=== PATIENT | female | born 1990 | race Caucasian/White ===

== ENCOUNTER 2016-05-30 11:33 | Emergency (ER) | payer MEDICAID, OTHER ==
[~2016-05-30] VITALS: Ht 160 cm; Wt 182.0 kg
[2016-05-30 14:40] VITALS: BP 130/69
== END 2016-05-30 14:42 | disposition home or self-care (01) ==
LOC: ED 14:15
DX: N92.4 Excessive bleeding in the premenopausal period (principal); Z88.0 Allergy status to penicillin
CPT/HCPCS: 36415; 76830; 84703; 85025

== ENCOUNTER 2020-04-30 16:50 | Inpatient (IN) | payer MEDICAID ==
[~2020-04-30] VITALS: Ht 160 cm; Wt 160.1 kg
--- NOTE | 2020-04-30 17:47 | NUR ---
RLQ ABD PAIN X3 DAYS WITH NAUSEA/LOOSE STOOL no abd surgeries last po intake 1pm
--- NOTE | 2020-04-30 17:51 | NUR ---
cc ua sent erp asked for pain/nause meds
[2020-04-30 17:53] LABS: BASOPHILS % (AUTO) 1 % (0-1); EOSINOPHILS % (AUTO) 3 % (1-7); LYMPHOCYTES % (AUTO) 29 % (22-44); MEAN CORPUSCULAR HEMOGLOBIN 26.8 pg (27.0-34.8); MEAN PLATELET VOLUME 7.9 fL (7.4-10.4); MONOCYTES % (AUTO) 6 % (2-9); NEUTROPHILS % (AUTO) 62 % (42-75); PLATELET COUNT 341 x10^3/uL (130-400); RED BLOOD COUNT 4.69 x10^6/uL (3.82-5.3); RED CELL DISTRIBUTION WIDTH 15.7 % (9.6-15.2)
[2020-04-30 17:55] LABS: MD NO
[2020-04-30] MEDS ORDERED: MORPHINE SULFATE 4 MG/ML, 1ML IVPush PRN (18:00)
[2020-04-30] MEDS ORDERED: OMNIPAQUE 350 MG/ML, 100ML BOTTLE ONE (18:00)
[2020-04-30] MEDS ORDERED: ONDANSETRON 2MG/ML, 2ML IVPush PRN (18:00)
[2020-04-30 18:02] LABS: MICROSCOPIC INDICATED
[2020-04-30 18:05] LABS: ALBUMIN 3.2 g/dL (3.4-5.0); ANION GAP 8 mmol/L (5-15); CALCIUM 8.3 mg/dL (8.5-10.1); CHLORIDE 111 mmol/L (98-107)
[2020-04-30 18:12] LABS: ALANINE AMINOTRANSFERASE 23 U/L (12-78); ALKALINE PHOSPHATASE 84 U/L (45-117); BILIRUBIN,TOTAL 0.7 mg/dL (0.2-1.0); CREATININE 0.82 mg/dL (0.55-1.02); TOTAL PROTEIN 7.2 g/dL (6.4-8.2)
--- NOTE | 2020-04-30 18:35 | NUR ---
PT REFUSING PAIN MEDS AT THIS TIME. PT RESTING ON SVETLANA. KITA.
[2020-04-30] MEDS ORDERED: CEFOTETAN PMX 2GM/50ML 50 ML IVPB ONE (19:00)
--- NOTE | 2020-04-30 19:11 | NUR ---
PT LAST ATE AT 1300 TODAY
--- NOTE | 2020-04-30 19:13 | NUR ---
DR MACARIO CLARIFIED PT PCN ALLERGY AND IS OK WITH ADMIN CEFOTAN. PHARM NOTIFIED.
--- NOTE | 2020-04-30 19:34 | NUR ---
RAPID COVID SWAB COLLECTED AND TAKEN TO LAB.
--- NOTE | 2020-04-30 20:05 | NUR ---
REPORT GIVEN TO NAOH BARNEY. PT RTG TO ROOM [id number]
[2020-04-30] MEDS ORDERED: ACETAMINOPHEN 325 MG TABLET PO PRN (21:00)
[2020-04-30] MEDS ORDERED: ENOXAPARIN 30 MG/0.3 ML SQ SCH (21:00)
[2020-04-30] MEDS ORDERED: OXYcodone IR 5MG TABLET PO PRN (21:00)
[2020-04-30] MEDS ORDERED: DEXTROSE 4 GM TAB.CHEW PO PRN (21:30)
[2020-04-30] MEDS ORDERED: GLUCAGON 1 MG IM PRN (21:30)
[2020-04-30] MEDS ORDERED: DEXTROSE 50%, 50ML SYRINGE IVPush PRN (21:30)
[2020-04-30 21:34] VITALS: BP 114/63
[2020-04-30] MEDS ORDERED: GLIP5TAB10 PO (21:52)
[2020-04-30] MEDS ORDERED: LOSA50TA14 PO (21:52)
[2020-04-30] MEDS ORDERED: MEGE20TA3 PO (21:52)
[2020-04-30] MEDS ORDERED: METF10007 PO (21:52)
[2020-04-30] MEDS ORDERED: INSU100I34 SQ (21:54)
[2020-04-30] MEDS ORDERED: INSULIN LISPRO 100 UNITS/ML, PEN SQ-INSULIN PRN (22:00)
[2020-04-30] MEDS ORDERED: BISACODYL 5 MG EC TABLET PO PRN (22:00)
[2020-04-30] MEDS ORDERED: POLYETHYLENE GLYCOL 17 GM PACKET NG PRN (22:00)
[2020-04-30] MEDS ORDERED: D5%-0.45% NACL 1,000 ML IV SCH (23:00)
[2020-05-01 01:20] VITALS: BP 135/93
[2020-05-01] MEDS: metroNIDAZOLE 500 MG TABLET PO SCH ×3 (01:31→14:29)
[2020-05-01] MEDS ORDERED: CEFTRIAXONE PMX 2GM/50ML 50 ML IVPB SCH (05:00)
[2020-05-01 05:05] LABS: BASOPHILS % (AUTO) 1 % (0-1); EOSINOPHILS % (AUTO) 3 % (1-7); LYMPHOCYTES % (AUTO) 34 % (22-44); MEAN CORPUSCULAR HEMOGLOBIN 26.8 pg (27.0-34.8); MEAN CORPUSCULAR HGB CONC 33.8 g/dL (32.4-35.8); MEAN PLATELET VOLUME 7.8 fL (7.4-10.4); MONOCYTES % (AUTO) 6 % (2-9); NEUTROPHILS % (AUTO) 57 % (42-75); PLATELET COUNT 301 x10^3/uL (130-400); RED BLOOD COUNT 4.59 x10^6/uL (3.82-5.3); RED CELL DISTRIBUTION WIDTH 15.6 % (9.6-15.2)
[2020-05-01 05:14] LABS: MD NO
[2020-05-01 05:19] LABS: ANION GAP 4 mmol/L (5-15); CALCIUM 8.2 mg/dL (8.5-10.1); CHLORIDE 111 mmol/L (98-107)
[2020-05-01 05:20] LABS: CREATININE 0.77 mg/dL (0.55-1.02)
[2020-05-01] MEDS ORDERED: BUPIVACAINE/PF 0.5% ONE (06:46)
[2020-05-01] MEDS ORDERED: EPINEPHRINE 1 MG/ML, 1ML ONE (06:46)
[2020-05-01] MEDS ORDERED: MIDAZOLAM 1 MG/ML, 2ML ONE (07:23)
[2020-05-01] MEDS ORDERED: FENTANYL PF 100 MCG/2ML ONE ×4 (07:23→08:31)
[2020-05-01] MEDS ORDERED: BUPIVACAINE/PF-EPI 0.5% 1:200K INFIL ONE (07:58)
[2020-05-01] MEDS ORDERED: ONDANSETRON 2MG/ML, 2ML ONE (08:19)
[2020-05-01] MEDS ORDERED: KETOROLAC 30 MG/1 ML ONE (08:19)
[2020-05-01] MEDS ORDERED: SUGAMMADEX 200 MG/2 ML IVPush ONE ×2 (08:19)
[2020-05-01] MEDS ORDERED: PROPOFOL 10 MG/ML, 20ML ONE (08:19)
[2020-05-01] MEDS ORDERED: SUCCINYLCHOLINE 20 MG/ML, 10ML ONE (08:19)
[2020-05-01] MEDS ORDERED: CEFAZOLIN 1,000 MG ONE (08:19)
[2020-05-01] MEDS ORDERED: ROCURONIUM 10MG/ML,5ML ONE (08:19)
[2020-05-01] MEDS ORDERED: LIDOCAINE-MPF 2% ,5ML ONE (08:19)
[2020-05-01] MEDS ORDERED: OXYcodone 5 MG/5 ML ORAL.SOL UDC ONE (08:32)
[2020-05-01] MEDS ORDERED: LORazepam 2 MG/ML, 1ML IVPush PRN (09:00)
[2020-05-01] MEDS ORDERED: OXYcodone 5 MG/5 ML ORAL.SOL UDC PO PRN (09:00)
[2020-05-01] MEDS ORDERED: HYDROmorphone 1 MG/ML, 1ML INJ IVPush PRN (09:00)
[2020-05-01] MEDS ORDERED: ALBUTEROL SULFATE 2.5 MG/3 ML NPPB PRN (09:00)
[2020-05-01] MEDS ORDERED: LABETALOL 5MG/ML, 20ML IV PRN (09:00)
[2020-05-01] MEDS ORDERED: OXCARBAZEPINE 150 MG TABLET PO SCH (09:00)
[2020-05-01] MEDS ORDERED: PROMETHAZINE 25 MG/ML, 1ML IVPush PRN (09:00)
[2020-05-01] MEDS ORDERED: SODIUM CHLORIDE FLUSH 10ML SYR IVF SCH (09:00)
[2020-05-01] MEDS ORDERED: MEPERIDINE/PF 25MG/0.5ML IVPush PRN (09:00)
[2020-05-01] MEDS ORDERED: hydrALAzine 20 MG/ML, 1ML IV PRN (09:00)
[2020-05-01] MEDS ORDERED: FENTANYL PF 100 MCG/2ML IV PRN (09:00)
[2020-05-01] MEDS ORDERED: LOSARTAN 50MG TABLET PO SCH (09:00)
[2020-05-01] MEDS ORDERED: ACETAMINOPHEN 325 MG TABLET PO PRN (09:00)
[2020-05-01] MEDS ORDERED: ALBUTEROL HFA 90 MCG/SPRAY INH PRN (10:30)
[2020-05-01] MEDS ORDERED: OXYC5TAB98 PO ×3 (10:59→11:01)
[2020-05-01] MEDS ORDERED: ACET325T26 PO (10:59)
[2020-05-01] MEDS ORDERED: ATOR20TA37 PO (10:59)
[2020-05-01] MEDS ORDERED: OXCA150T18 PO (10:59)
[2020-05-01 15:34] VITALS: BP 142/84
[2020-05-01] MEDS ORDERED: INSULIN GLARGINE 100 UNITS/ML, PEN SQ-INSULIN SCH (21:00)
[2020-05-01] MEDS ORDERED: ATORVASTATIN 20 MG TABLET PO SCH (21:00)
== END 2020-05-01 16:10 | disposition home or self-care (01) | DRG 342 ==
LOC: ED 17:45 → EDIP 19:33 → 4NE 20:12 → DCLOUNGE 05-01 16:04
PROVIDERS: ADMIT Family Medicine; ATTEND Family Medicine
PROC: 0DTJ4ZZ Resection of Appendix, Percutaneous Endoscopic Approach (ICD-10-PCS; principal; 2020-05-01 07:30)
DX: K35.30 Acute appendicitis with localized peritonitis, without perforation or gangrene (principal); F19.20 Other psychoactive substance dependence, uncomplicated; Z68.44 Body mass index [BMI] 60.0-69.9, adult; F31.9 Bipolar disorder, unspecified; E88.09 Other disorders of plasma-protein metabolism, not elsewhere classified; E78.5 Hyperlipidemia, unspecified; E66.01 Morbid (severe) obesity due to excess calories; F12.10 Cannabis abuse, uncomplicated; F41.9 Anxiety disorder, unspecified; E11.9 Type 2 diabetes mellitus without complications; I10 Essential (primary) hypertension; E61.1 Iron deficiency; N85.00 Endometrial hyperplasia, unspecified; Z20.822 Contact with and (suspected) exposure to COVID-19; Z88.0 Allergy status to penicillin; N92.0 Excessive and frequent menstruation with regular cycle
CPT/HCPCS: 36415; J3490; S0020; 74177; 80048; 80053; 81001; 82728; 83540; 83550; 83690; 84443; 84703; 85025; 87635; 93005; G0378; J0171; J0690; J0696; J1885; J2250; J2405; J2704; J3010; Q9967; J0330